=== PATIENT | male | born 1980 | race Caucasian/White ===

== ENCOUNTER 2017-04-16 09:57 | Emergency (ER) | payer SELFPAY ==
[2017-04-16 10:48] LABS: #Basophils 0.1 thou/uL (0.0-0.2); #Eosinphils 0.1 thou/uL (0.0-0.7); #Lymphocytes 2.9 thou/uL (1.20-3.40); #Monocytes 0.4 thou/uL (0.11-0.59); #Neutrophils 3.3 thou/uL (1.40-6.50); %Basophils 1.2 % (0.0-1.0); %Eosinophils 1.5 % (0.0-10.0); %Lymphocytes 42.6 % (21.0-51.0); %Monocytes 6.3 % (0.0-10.0); %Neutrophils 48.4 % (42.0-75.0); Mean Corpuscular HGB CONC 33.8 g/dL (32.0-36.0); Mean Corpuscular Hemoglobin 27.8 pg (27.0-31.0); Mean Corpuscular Volume 82.2 fl (80.0-94.0); Mean Platelet Volume 6.6 fL (7.4-10.4); Platelet Count 321 thou/uL (130-400); RBC Distribution Width 11.2 % (11.5-14.5); Red Blood Cell (RBC) Count 5.41 mill/uL (4.70-6.10); White Blood Cell (WBC) Count 6.8 thou/uL (4.8-10.8)
[2017-04-16 11:01] LABS: ALT (SGPT) 46 U/L (8-55); AST (SGOT) 32 U/L (5-34); Albumin 4.2 g/dL (3.5-5.0); Alkaline Phosphatase 99 U/L (40-150); Anion Gap 14 mmol/L (10-20); BUN (Urea Nitrogen) 14 mg/dL (8.9-20.6); Bilirubin, Total 0.5 mg/dL (0.2-1.2); CK (CPK) 74 U/L (30-200); Calc. Creatinine Clearance 0 mL/min (70-130); Calcium 9.1 mg/dL (7.8-10.44); Carbon Dioxide 25 mmol/L (22-29); Chloride 106 mmol/L (98-107); Estimated GFR-MDRD 77; Globulin 3.1 g/dL (2.4-3.5); Glucose 82 mg/dL (70-105); Potassium 4.5 mmol/L (3.5-5.1); Protein, Total 7.3 g/dL (6.0-8.3); Sodium 140 mmol/L (136-145)
[2017-04-16 11:02] LABS: CKMB 0.9 ng/mL (0-6.6); Troponin I Less than 0.010 ng/mL (< 0.028)
--- NOTE | 2017-04-16 12:31 | CT ---
CTA CHEST WITH CONTRAST: Date: 04/16/17 HISTORY: Emergency exam. Chest pain. Heart fluttering. COMPARISON: None. TECHNIQUE: CT angiogram chest performed after the intravenous administration of contrast. 3D rendering is provid ed. FINDINGS: No proximal segmental pulmonary arterial filling defect. Evaluation for distal emboli is limited due to phase of contrast. Lungs are hypoinflated. Pulmonary trunk size is normal. Aortic size is normal. No pericardial effusion. Upper abdomen is unremarkable. No pneumothorax or effusion. No focal air space consolidation. Within the left lung base is a well-de fined round nodule with internal attenuation over 200, likely early calcified granuloma. This nodule measures 8.0 mm. No displaced rib fracture. Spine is unremarkable. IMPRESSION: 1. No proximal segmental pulmonary arterial filling defect. 2. No pneumonia or other acute intrathoracic abnormality. 3. 9.0 mm nodule in the left lower lobe, although has attenuation of greater than 200 suggesting ear ly calcifications within a granuloma. Follow-up CT of the chest can be obtained in 6 months. CODE: TODD POS: RORY
== END 2017-04-16 12:31 | disposition home or self-care (01) ==
LOC: NAV ERS 09:57
DX: I49.3 Ventricular premature depolarization (principal); F41.9 Anxiety disorder, unspecified; Z79.899 Other long term (current) drug therapy
CPT/HCPCS: 36415; 71275; 80053; 82550; 82553; 84484; 85025; 85379; 93005

== ENCOUNTER 2021-01-26 15:59 | Outpatient (CLI) | payer MEDICAID, SELFPAY | END 2021-01-26 16:00 | disposition home or self-care (01) | LOC: NAV RAD 15:59 | PROVIDERS: ATTEND Family Medicine | DX: M79.671 Pain in right foot (principal); M79.672 Pain in left foot; M77.32 Calcaneal spur, left foot ==

== ENCOUNTER 2022-08-25 14:43 | Outpatient (CLI) | payer BC | END 2022-08-25 14:44 | disposition home or self-care (01) | LOC: NAV RAD 14:43 | PROVIDERS: ATTEND Nurse Practitioner Family | DX: M54.6 Pain in thoracic spine (principal) | CPT/HCPCS: 72072 ==